=== PATIENT | female | born 1985 | race Caucasian/White ===

== ENCOUNTER 2016-09-19 16:24 | Emergency (ER) ==
[2016-09-19 16:39] VITALS: BP 128/99; TEMP 98.2; BMI 29.2
[2016-09-19 16:59] LABS: BASOPHILS # (AUTO) 0.1 K/uL (0-0.2); BASOPHILS % (AUTO) 1.3 % (0.0-3.0); EOSINOPHILS # (AUTO) 0.1 K/ul (0.0-0.7); HEMATOCRIT 37.7 % (37.0-47.0); HEMOGLOBIN 12.6 g/dl (12.0-16.0); IMMATURE GRANULOCYTE % (AUTO) 0.2 % (0.0-5.0); LYMPHOCYTES # (AUTO) 2.9 K/uL (0.60-3.4); LYMPHOCYTES % (AUTO) 49.2 (10.0-50.0); MEAN CORPUSCULAR HEMOGLOBIN 29.4 pg (27.0-31.0); MEAN CORPUSCULAR HGB CONC 33.4 (31.8-35.4); MEAN CORPUSCULAR VOLUME 87.9 fl (81.0-99.0); MONOCYTES # (AUTO) 0.4 K/uL (0.4-2.0); MONOCYTES % (AUTO) 6.2 (0-10); NEUTROPHILS # (AUTO) 2.5 K/ul (2.0-6.9); NEUTROPHILS % (AUTO) 41.1; PLATELET COUNT 390 10^3/uL (140-440); RED BLOOD COUNT 4.29 10^6/ul (4.20-5.40); WHITE BLOOD COUNT 5.98 K/ul (4.6-10.2)
[2016-09-19 17:18] LABS: ALBUMIN 4.7 g/dL (3.4-5.0); ALBUMIN/GLOBULIN RATIO 1.31; ANION GAP 13.8; BILIRUBIN,TOTAL 0.96 mg/dL (0.00-1.20); BUN/CREATININE RATIO 12.5; CALCIUM 9.6 mg/dL (8.2-10.2); CREATININE 0.88 mg/dL (0.60-1.30); POTASSIUM 3.8 mmol/L (3.5-5.10); TOTAL PROTEIN 8.3 g/dL (6.4-8.2)
[2016-09-19 17:29] LABS: FLU INTERNAL QC INTERNAL QC VALID; RAPID FLU A NEGATIVE (NEGATIVE); RAPID FLU B NEGATIVE (NEGATIVE)
[2016-09-19] MEDS ORDERED: DECADRON 4 MG/ML SDV IM STA (17:36)
--- NOTE | 2016-09-19 17:40 | ED.PDOC ---
General ED Provider: Dr. CAL BLANCO Chief Complaint: Respiratory Complaint Stated Complaint: flu like symptom puritic rash left neck Time Seen by Physician: 16:30 Mode of Arrival: Walk-In Information Source: Patient Exam Limitations: No limitations Nursing and Triage Documentation Reviewed and Agree: Yes Skin Complaint Exam - Skin Rash/Itching Complaint/Exam Onset/Duration: today left neck Symptoms Are: Still present Initial Severity: Mild Current Severity: Mild Potential Exposures: Reports: Unknown Aggravating: Reports: None Alleviating: Reports: None Associated Signs and Symptoms: Denies: Difficulty breathing, Fever, Chills Skin Findings: Present: Maculae Differential Diagnoses: Allergic Reaction, Contact Dermatitis Review of Systems - Review Of Systems Constitutional: Reports: No symptoms Eyes: Reports: No symptoms Ears, Nose, Mouth, Throat: Reports: Throat pain Respiratory: Reports: Cough Cardiac: Reports: No symptoms GI: Reports: No symptoms : Reports: No symptoms Musculoskeletal: Reports: No symptoms Skin: Reports: Rash (see photos) Neurological: Reports: No symptoms Endocrine: Reports: No symptoms Hematologic/Lymphatic: Reports: No symptoms All Other Systems: Reviewed and Negative Past Medical History - Past Medical History Previously Healthy: Yes Endocrine: Reports: None Cardiovascular: Reports: None Respiratory: Reports: None Hematological: Reports: None Gastrointestinal: Reports: None Genitourinary: Reports: None Neuro/Psych: Reports: None Musculoskeletal: Reports: None Cancer: Reports: None Last Menstrual Period: now - Surgical History General Surgical History: Reports: None - Family History Family History: Reports: None - Social History Smoking Status: Former smoker Hx Substance Use: No Alcohol Screening: None Physical Exam - Physical Exam Appearance: Well-appearing, No pain distress, Well-nourished Eyes: KACI, EOMI, Conjunctiva clear ENT: Ears normal, Nose normal, Oropharynx normal Respiratory: Airway patent, Breath sounds clear, Breath sounds equal, Respirations nonlabored Cardiovascular: RRR, Pulses normal, No rub, No murmur GI/: Soft, Nontender, No masses, Bowel sounds normal, No Organomegaly Musculoskeletal: Normal strength, ROM intact, No edema, No calf tenderness Skin: Warm, Dry (rash left neck plz see photos) Neurological: Sensation intact, Motor intact, Reflexes intact, Cranial nerves intact, Alert, Oriented Psychiatric: Affect appropriate, Mood appropriate Critical Care Note - Critical Care Note Total Time (mins): 0 Course - Course Hematology/Chemistry: 09/19/16 16:50 09/19/16 16:50 Orders, Labs, Meds: Lab Review 09/19/16 09/19/16 16:50 17:10 WBC 5.98 RBC 4.29 Hgb 12.6 Hct 37.7 MCV 87.9 MCH 29.4 MCHC 33.4 RDW Coeff of Denisse 13.7 Plt Count 390 Immature Gran % (Auto) 0.2 Neut % (Auto) 41.1 Lymph % (Auto) 49.2 [place] % (Auto) 6.2 Eos % (Auto) 2.0 Baso % (Auto) 1.3 Immature Gran # (Auto) 0.0 Neut # 2.5 Lymph # 2.9 [place] # 0.4 Eos # 0.1 Baso # 0.1 Sodium 137 Potassium 3.8 Chloride 105 Carbon Dioxide 22 Anion Gap 13.8 BUN 11 Creatinine 0.88 Estimated GFR (MDRD) 75.00 BUN/Creatinine Ratio 12.50 Glucose 107 Calcium 9.6 Total Bilirubin 0.96 AST 18 ALT 11 L Alkaline Phosphatase 87 Total Protein 8.3 H Albumin 4.7 Globulin 3.6 Albumin/Globulin Ratio 1.31 Influenza A (Rapid) Negative Influenza B (Rapid) Negative Orders Category Date Time Status BLOOD CULTURE Stat LAB 09/19/16 16:50 Received CBC W/ AUTO DIFF Stat LAB 09/19/16 16:50 Completed COMPREHENSIVE METABOLIC PANEL Stat LAB 09/19/16 16:50 Completed MOLECULAR GROUP A STREP Stat LAB 09/19/16 17:10 Results RAPID FLU A/B Stat LAB 09/19/16 17:10 Completed STREP SCREEN Stat LAB 09/19/16 17:10 Results Dexamethasone 4 mg/ml Inj [Decadron 4 mg/ml Sdv] MEDS 09/19/16 17:36 Stat 4 mg IM ONCE STA Medications Generic Name Dose Route Start Last Admin Trade Name Freq PRN Reason Stop Dose Admin Dexamethasone Sodium Phosphate 4 mg 09/19/16 17:36 Decadron 4 Mg/Ml Sdv IM 09/19/16 17:37 ONCE STA Vital Signs: Temp Pulse Resp BP Pulse Ox 09/19/16 16:25 98.2 F 116 H 20 128/99 H 98 Departure - Departure Time of Disposition: 17:39 Disposition: HOME SELF-CARE Discharge Problem: Rash of neck Instructions: Acute Rash (ED) Condition: Good Pt referred to PMD for follow-up: No Additional Instructions: Please call your Family Physician as soon as possible to schedule a follow-up appointment. Allergies/Adverse Reactions: Allergies Penicillins Adverse Reaction (Verified 09/19/16 16:35) Home Medications: Ambulatory Orders Norgestimate-Ethinyl Estradiol [Ortho Tri-Cyclen Lo Tablet] 1 each PO DAILY 02/10
== END 2016-09-19 17:58 | disposition home or self-care (01) ==
LOC: ED 16:24
DX: R21 Rash and other nonspecific skin eruption (principal); R06.9 Unspecified abnormalities of breathing; J02.9 Acute pharyngitis, unspecified; R05 Cough
CPT/HCPCS: 36415; 80053; 85025; 87040; 87651; 87804; 87880; 96372; 99283

== ENCOUNTER 2016-09-26 09:44 | Emergency (ER) ==
[2016-09-26 09:54] VITALS: BP 171/98; TEMP 97.8; BMI 29.2
[2016-09-26 10:26] LABS: BASOPHILS # (AUTO) 0.1 K/uL (0-0.2); BASOPHILS % (AUTO) 1.2 % (0.0-3.0); EOSINOPHILS # (AUTO) 0.2 K/ul (0.0-0.7); EOSINOPHILS % (AUTO) 1.9 % (0.0-7.0); HEMATOCRIT 36.6 % (37.0-47.0); HEMOGLOBIN 12.8 g/dl (12.0-16.0); IMMATURE GRANULOCYTE % (AUTO) 0.3 % (0.0-5.0); LYMPHOCYTES # (AUTO) 2.3 K/uL (0.60-3.4); LYMPHOCYTES % (AUTO) 29.7 (10.0-50.0); MEAN CORPUSCULAR HEMOGLOBIN 30.4 pg (27.0-31.0); MEAN CORPUSCULAR VOLUME 86.9 fl (81.0-99.0); MONOCYTES # (AUTO) 0.5 K/uL (0.4-2.0); MONOCYTES % (AUTO) 5.9 (0-10); NEUTROPHILS # (AUTO) 4.7 K/ul (2.0-6.9); PLATELET COUNT 397 10^3/uL (140-440); RED BLOOD COUNT 4.21 10^6/ul (4.20-5.40); WHITE BLOOD COUNT 7.74 K/ul (4.6-10.2)
--- NOTE | 2016-09-26 10:31 | ED.PDOC ---
General ED Provider: Dr. CAL BLANCO Chief Complaint: Rash Stated Complaint: rash, brusing Time Seen by Physician: 09:49 (brusing and rash lower ext see photos) Mode of Arrival: Walk-In Information Source: Patient Exam Limitations: No limitations Nursing and Triage Documentation Reviewed and Agree: Yes (pt was seen a bout a week ago bymyself the neck rash has discontinued ) Skin Complaint Exam - Skin Rash/Itching Complaint/Exam Onset/Duration: 4 days Symptoms Are: Still present Initial Severity: Mild Current Severity: Mild Potential Exposures: Reports: Unknown Prior Treatment: rash neck which is no longer present Alleviating: Reports: None Associated Signs and Symptoms: Denies: Difficulty breathing, Fever, Chills Related History: Similar episode Skin Findings: Present: Papules, Vesicles (see photos sole of foot and hand not involved ) Differential Diagnoses: Viral Exanthema Review of Systems - Review Of Systems Constitutional: Reports: No symptoms Eyes: Reports: No symptoms Ears, Nose, Mouth, Throat: Reports: No symptoms Respiratory: Reports: No symptoms Cardiac: Reports: No symptoms GI: Reports: No symptoms : Reports: No symptoms Musculoskeletal: Reports: No symptoms Skin: Reports: Rash (on arms, legs as noted on the photos) Neurological: Reports: No symptoms Endocrine: Reports: No symptoms Hematologic/Lymphatic: Reports: No symptoms All Other Systems: Reviewed and Negative Past Medical History - Past Medical History Previously Healthy: Yes Endocrine: Reports: None Cardiovascular: Reports: None Respiratory: Reports: None Hematological: Reports: None Gastrointestinal: Reports: None Genitourinary: Reports: None Neuro/Psych: Reports: None Musculoskeletal: Reports: None Cancer: Reports: None Last Menstrual Period: 2 weeks - Surgical History General Surgical History: Reports: None - Family History Family History: Reports: None - Social History Smoking Status: Former smoker Hx Substance Use: No Alcohol Screening: None Physical Exam - Physical Exam Appearance: Well-appearing, No pain distress, Well-nourished Eyes: KACI, EOMI, Conjunctiva clear ENT: Ears normal, Nose normal, Oropharynx normal Respiratory: Airway patent, Breath sounds clear, Breath sounds equal, Respirations nonlabored Cardiovascular: RRR, Pulses normal, No rub, No murmur GI/: Soft, Nontender, No masses, Bowel sounds normal, No Organomegaly Musculoskeletal: Normal strength, ROM intact, No edema, No calf tenderness Skin: Warm, Dry (also brusing on upper left leg) Neurological: Sensation intact, Motor intact, Reflexes intact, Cranial nerves intact, Alert, Oriented Psychiatric: Affect appropriate, Mood appropriate Critical Care Note - Critical Care Note Total Time (mins): 0 Course - Course Hematology/Chemistry: 09/26/16 10:20 09/26/16 10:20 Orders, Labs, Meds: Lab Review 09/26/16 09/26/16 10:20 10:30 WBC 7.74 RBC 4.21 Hgb 12.8 Hct 36.6 L MCV 86.9 MCH 30.4 MCHC 35.0 RDW Coeff of [place] 13.6 Plt Count 397 Immature Gran % (Auto) 0.3 Neut % (Auto) 61.0 Lymph % (Auto) 29.7 [place] % (Auto) 5.9 Eos % (Auto) 1.9 Baso % (Auto) 1.2 Immature Gran # (Auto) 0.0 Neut # 4.7 Lymph # 2.3 [place] # 0.5 Eos # 0.2 Baso # 0.1 Sodium 140 Potassium 3.6 Chloride 108 H Carbon Dioxide 20 L Anion Gap 15.6 BUN 8 Creatinine 0.79 Estimated GFR (MDRD) 85.00 BUN/Creatinine Ratio 10.12 Glucose 96 Calcium 9.5 Total Bilirubin 0.49 AST 14 L ALT 9 L Alkaline Phosphatase 89 Total Protein 8.0 Albumin 4.3 Globulin 3.7 Albumin/Globulin Ratio 1.16 Urine Color Yellow Urine Clarity Clear Urine pH 6.0 Ur Specific [place] 1.010 Urine Protein Negative Urine Glucose (UA) Negative Urine Ketones Negative Urine Blood Negative Urine Nitrite Negative Urine Bilirubin Negative Urine Urobilinogen 0.2 Ur Leukocyte Esterase Trace Urine Microscopic WBC 0-2 Ur Squamous Epith Cells 0-2 Orders Category Date Time Status BLOOD CULTURE Stat LAB 09/26/16 10:20 Received CBC W/ AUTO DIFF Stat LAB 09/26/16 10:20 Completed COMPREHENSIVE METABOLIC PANEL Stat LAB 09/26/16 10:20 Completed LYME, WESTERN BLOT, SERUM Stat LAB 09/26/16 10:20 Received KACY MTN SPOTTED FEVER,IgG Routine LAB 09/26/16 10:20 Received KACY MTN SPOTTED FEVER,IgM Routine LAB 09/26/16 10:20 Received UA [URINALYSIS C & S IF INDICATED] Stat LAB 09/26/16 10:30 Completed Vital Signs: Temp Pulse Resp BP Pulse Ox 09/26/16 09:45 97.8 F 95 H 20 171/98 H 99 Departure - Departure Time of Disposition: 11:14 Disposition: HOME SELF-CARE Discharge Problem: Rash Instructions: Acute Rash (ED), Viral Exanthem (ED), Dermatitis (ED) Condition: Good Pt referred to PMD for follow-up: No Additional Instructions: Please call your Family Physician as soon as possible to schedule a follow-up appointment. must see your MD for follow up also results of some of the tests which has been sent to an outside LAB. These results wont be available for a few days . Allergies/Adverse Reactions: Allergies Penicillins Adverse Reaction (Verified 09/26/16 09:52) Home Medications: Ambulatory Orders Norgestimate-Ethinyl Estradiol [Ortho Tri-Cyclen Lo Tablet] 1 each PO DAILY 02/10 Disposition Discussed With: Patient
[2016-09-26 10:39] LABS: BILIRUBIN,URINE Negative (NEGATIVE); KETONES,URINE Negative (NEGATIVE); LEUKOCYTE ESTERASE ,URINE Trace (NEGATIVE); NITRITE,URINE Negative (NEGATIVE); PROTEIN,URINE Negative (NEGATIVE); URINE, BLOOD Negative (NEGATIVE)
[2016-09-26 10:47] LABS: ALBUMIN 4.3 g/dL (3.4-5.0); ALBUMIN/GLOBULIN RATIO 1.16; ANION GAP 15.6; BILIRUBIN,TOTAL 0.49 mg/dL (0.00-1.20); BUN/CREATININE RATIO 10.12; CALCIUM 9.5 mg/dL (8.2-10.2); CREATININE 0.79 mg/dL (0.60-1.30); POTASSIUM 3.6 mmol/L (3.5-5.10)
[2016-09-26 10:47] LABS: ADD URINE MICROSCOPIC YES
[2016-09-28 19:09] LABS: IGG P18 AB Absent (.); IGG P23 AB Absent (.); IGG P28 AB Absent (.); IGG P30 AB Absent (.); IGG P39 AB Present (.); IGG P41 AB Present (.); IGG P45 AB Present (.); IGG P58 AB Absent (.); IGG P66 AB Absent (.); IGG P93 AB Absent (.); IGM P39 AB Absent (.); IGM P41 AB Absent (.)
[2016-09-29 07:18] LABS: LYME IGG WB INTERP Negative (.); LYME IGM WB INTERP Negative (.)
== END 2016-09-26 11:18 | disposition home or self-care (01) ==
LOC: ED 09:44
DX: R21 Rash and other nonspecific skin eruption (principal); S70.12XA Contusion of left thigh, initial encounter
CPT/HCPCS: 36415; 80053; 81001; 85025; 86617; 86757; 87040; 99283